=== PATIENT | male | born 1980 | race Caucasian/White ===

== ENCOUNTER 2022-02-20 21:26 | Inpatient (IN) | payer OTHER ==
[2022-02-20 21:32] VITALS: BMI 22.4
[2022-02-21] MEDS ORDERED: chlordiazePOXIDE HCL 25 MG CAPSULE PO ONE ×2 (03:13→08:00)
[2022-02-21 04:16] LABS: BASO % 0.7 % (0-2.0); EOS % 2.4 % (0-4.5); HEMATOCRIT 40.3 % (35.4-49); HEMOGLOBIN 14.2 GM/dL (11.7-16.9); LYMPH % 39.6 % (8-40); MCH 30.9 pg (25.7-33.7); MCHC 35.1 g/dl (32.0-35.9); MEAN PLT VOLUME 7.9 fl (7.5-11.1); NEUT % 48.3 % (42.8-82.8); PLATELET COUNT 216 10^3/uL (134-434); RBC 4.58 M/mm3 (4.00-5.60); RDW 13.8 % (11.9-15.9); WHITE BLOOD COUNT 5.3 K/mm3 (4.0-10.0)
[2022-02-21] MEDS ORDERED: chlordiazePOXIDE HCL 25 MG CAPSULE ONE ×3 (04:21→10:43)
[2022-02-21 04:24] LABS: ALBUMIN 4.3 g/dl (3.4-5.0); BLOOD UREA NITROGEN 9.2 mg/dL (7-18)
[2022-02-21 04:27] LABS: CREATININE 0.8 mg/dL (0.55-1.3)
[2022-02-21 04:28] LABS: BILIRUBIN,TOTAL 0.4 mg/dL (0.2-1); TOT PROT 7.6 g/dl (6.4-8.2)
[2022-02-21] MEDS ORDERED: FOLIC ACID INJECTION - 1 MG, THIAMINE HCL 100 MG, MULTIVIT INJECTION ADULT 10 ML in SOD... IVPB ONE (06:37)
[2022-02-21 06:49] VITALS: TEMP 97.9
[2022-02-21] MEDS ORDERED: chlordiazePOXIDE HCL 25 MG CAPSULE PO PRN (07:15)
[2022-02-21] MEDS ORDERED: MULTIVITAMINS (DAILY MVI) TABLET (FP) PO SCH (10:00)
[2022-02-21] MEDS ORDERED: ENOXAPARIN NA (PORCINE) 40 MG/0.4 ML DISP.SYRIN SQ SCH (10:00)
[2022-02-21] MEDS ORDERED: chlordiazePOXIDE HCL 25 MG CAPSULE PO SCH (11:00)
[2022-02-21 11:03] VITALS: BP 115/77; PULSE 99
[2022-02-22] MEDS ORDERED: THIAMINE HCL 100 MG TABLET (FP) PO SCH (10:00)
[2022-02-23] MEDS ORDERED: chlordiazePOXIDE HCL 25 MG CAPSULE PO SCH (05:00)
[2022-02-24] MEDS ORDERED: chlordiazePOXIDE HCL 10 MG CAPSULE PO SCH (05:00)
[2022-02-25] MEDS ORDERED: chlordiazePOXIDE HCL 10 MG CAPSULE PO SCH (05:00)
== END 2022-02-21 11:27 | disposition other institution (70) | DRG 774 ==
LOC: JER 21:26 → JERBED 02-21 03:22
PROVIDERS: ADMIT Hospitalist; ATTEND Internal Medicine
PROC: HZ2ZZZZ Detoxification Services for Substance Abuse Treatment (ICD-10-PCS; principal; 2022-02-21)
DX: F10.239 Alcohol dependence with withdrawal, unspecified (principal); F41.8 Other specified anxiety disorders; R20.0 Anesthesia of skin; F14.10 Cocaine abuse, uncomplicated; F17.200 Nicotine dependence, unspecified, uncomplicated; R11.0 Nausea; R25.1 Tremor, unspecified; R45.1 Restlessness and agitation
CPT/HCPCS: 36415; 70450-TC; 71045-TC-FY; 72125-TC; 80053; 80307; 84484; 85025; 93005; 93010; 99285-25; C9803-CS; U0003; U0005

== ENCOUNTER 2022-02-21 12:30 | Inpatient (IN) | payer OTHER ==
[2022-02-21 12:59] VITALS: BMI 22.4
[2022-02-21] MEDS ORDERED: DICYCLOMINE HCL 10 MG CAPSULE PO PRN (13:42)
[2022-02-21] MEDS ORDERED: LOPERAMIDE HCL 2 MG CAPSULE PO PRN (13:42)
[2022-02-21] MEDS ORDERED: IBUPROFEN 400 MG TABLET (FP) PO PRN (13:42)
[2022-02-21] MEDS ORDERED: MAGNESIUM CITRATE 300 ML BOTTLE PO PRN (13:42)
[2022-02-21] MEDS ORDERED: METHOCARBAMOL 500 MG TABLET PO PRN (13:42)
[2022-02-21] MEDS ORDERED: ONDANSETRON *ODT* 4 MG TABLET SL PRN (13:42)
[2022-02-21] MEDS ORDERED: IBUPROFEN 600 MG TABLET (FP) PO PRN (13:42)
[2022-02-21] MEDS ORDERED: BISMUTH SUBSALICYLATE 524 MG/30 ML PO PRN (13:42)
[2022-02-21] MEDS ORDERED: ACETAMINOPHEN 325 MG TABLET (FP) PO PRN ×2 (13:42)
[2022-02-21] MEDS ORDERED: MAGNESIUM HYDROX 2400MG/30ML ORAL SUSPENSION 30 ML CUP PO PRN (13:42)
[2022-02-21] MEDS ORDERED: BENZOCAINE/MENTHOL (CHLORASEPTIC ) LOZENGE MM PRN (13:42)
[2022-02-21] MEDS ORDERED: chlordiazePOXIDE HCL 25 MG CAPSULE PO PRN (13:42)
[2022-02-21] MEDS ORDERED: MAG HYDROX/AL HYDROX/SIMETH 30 ML UNIT-DOSE CUP PO PRN (13:42)
[2022-02-21] MEDS: GABAPENTIN 400 MG CAPSULE PO SCH ×2 (15:23→22:35)
[2022-02-21] MEDS: hydrOXYzine PAMOATE 25 MG CAPSULE (FP) PO SCH ×3 (15:23→22:34)
[2022-02-21] MEDS: MELATONIN 5 MG TABLETS PO SCH (22:34)
[2022-02-21] MEDS: cloNIDine HCL 0.1 MG TABLET PO SCH (22:34)
[2022-02-21] MEDS: THIAMINE HCL 100 MG TABLET (FP) PO SCH (22:34)
[2022-02-21] MEDS: chlordiazePOXIDE HCL 25 MG CAPSULE PO SCH (22:36)
[2022-02-22] MEDS: cloNIDine HCL 0.1 MG TABLET PO SCH ×3 (08:37→22:03)
[2022-02-22] MEDS: GABAPENTIN 400 MG CAPSULE PO SCH ×3 (08:37→22:03)
[2022-02-22] MEDS: hydrOXYzine PAMOATE 25 MG CAPSULE (FP) PO SCH ×5 (08:37→22:03)
[2022-02-22] MEDS: chlordiazePOXIDE HCL 25 MG CAPSULE PO SCH ×4 (08:37→22:04)
[2022-02-22] MEDS ORDERED: PARoxetine HCL 10 MG TABLET PO SCH (10:00)
[2022-02-22] MEDS: PRENATAL VITAMINS W/ FOLIC ACID TABLET (FP) PO SCH (10:16)
[2022-02-22 12:55] LABS: HEMATOCRIT 39.4 % (35.4-49); HEMOGLOBIN 13.5 GM/dL (11.7-16.9); MCH 30.9 pg (25.7-33.7); MCHC 34.4 g/dl (32.0-35.9); MEAN PLT VOLUME 8.3 fl (7.5-11.1); PLATELET COUNT 197 10^3/uL (134-434); RBC 4.38 M/mm3 (4.00-5.60); RDW 13.5 % (11.9-15.9); WHITE BLOOD COUNT 3.8 K/mm3 (4.0-10.0)
[2022-02-22 13:27] LABS: ALBUMIN 3.6 g/dl (3.4-5.0); CALCIUM 8.9 mg/dL (8.5-10.1)
[2022-02-22 13:28] LABS: CREATININE 0.7 mg/dL (0.55-1.3)
[2022-02-22 13:31] LABS: BILIRUBIN,TOTAL 0.7 mg/dL (0.2-1); TOT PROT 6.4 g/dl (6.4-8.2)
[2022-02-22] MEDS: NICOTINE 10 MG CARTRIDGE (INHALER) IH PRN (19:14)
[2022-02-22] MEDS: MELATONIN 5 MG TABLETS PO SCH (22:01)
[2022-02-22] MEDS: busPIRone HCL 10 MG TABLET (FP) PO SCH (22:02)
[2022-02-22] MEDS: THIAMINE HCL 100 MG TABLET (FP) PO SCH (22:03)
[2022-02-23] MEDS: NICOTINE 10 MG CARTRIDGE (INHALER) IH PRN ×3 (06:25→22:18)
[2022-02-23] MEDS: hydrOXYzine PAMOATE 25 MG CAPSULE (FP) PO SCH ×5 (06:26→22:14)
[2022-02-23] MEDS: chlordiazePOXIDE HCL 25 MG CAPSULE PO SCH ×4 (06:26→22:13)
[2022-02-23] MEDS: GABAPENTIN 400 MG CAPSULE PO SCH ×3 (06:26→22:14)
[2022-02-23] MEDS: cloNIDine HCL 0.1 MG TABLET PO SCH ×3 (06:27→22:14)
[2022-02-23] MEDS: busPIRone HCL 10 MG TABLET (FP) PO SCH ×2 (10:20→22:14)
[2022-02-23] MEDS: PRENATAL VITAMINS W/ FOLIC ACID TABLET (FP) PO SCH (10:21)
[2022-02-23] MEDS: MELATONIN 5 MG TABLETS PO SCH (22:14)
[2022-02-23] MEDS: THIAMINE HCL 100 MG TABLET (FP) PO SCH (22:14)
[2022-02-24] MEDS ORDERED: chlordiazePOXIDE HCL 10 MG CAPSULE PO PRN
[2022-02-24] MEDS: chlordiazePOXIDE HCL 10 MG CAPSULE PO SCH ×4 (05:59→22:33)
[2022-02-24] MEDS: GABAPENTIN 400 MG CAPSULE PO SCH ×3 (05:59→22:32)
[2022-02-24] MEDS: hydrOXYzine PAMOATE 25 MG CAPSULE (FP) PO SCH ×5 (05:59→22:31)
[2022-02-24] MEDS: cloNIDine HCL 0.1 MG TABLET PO SCH ×3 (05:59→22:31)
[2022-02-24] MEDS: NICOTINE 10 MG CARTRIDGE (INHALER) IH PRN ×3 (06:00→17:52)
[2022-02-24] MEDS: PRENATAL VITAMINS W/ FOLIC ACID TABLET (FP) PO SCH (10:34)
[2022-02-24] MEDS: busPIRone HCL 10 MG TABLET (FP) PO SCH ×2 (10:34→22:31)
[2022-02-24] MEDS: MELATONIN 5 MG TABLETS PO SCH (22:32)
[2022-02-24] MEDS: THIAMINE HCL 100 MG TABLET (FP) PO SCH (22:32)
[2022-02-25] MEDS: chlordiazePOXIDE HCL 10 MG CAPSULE PO SCH ×2 (05:27→17:54)
[2022-02-25] MEDS: hydrOXYzine PAMOATE 25 MG CAPSULE (FP) PO SCH ×5 (05:27→22:04)
[2022-02-25] MEDS: GABAPENTIN 400 MG CAPSULE PO SCH ×3 (05:27→22:05)
[2022-02-25] MEDS: cloNIDine HCL 0.1 MG TABLET PO SCH ×3 (05:27→22:04)
[2022-02-25] MEDS: NICOTINE 10 MG CARTRIDGE (INHALER) IH PRN ×3 (05:29→18:02)
[2022-02-25] MEDS: busPIRone HCL 10 MG TABLET (FP) PO SCH ×2 (10:27→22:04)
[2022-02-25] MEDS: PRENATAL VITAMINS W/ FOLIC ACID TABLET (FP) PO SCH (10:27)
[2022-02-25] MEDS: THIAMINE HCL 100 MG TABLET (FP) PO SCH (22:04)
[2022-02-25] MEDS: MELATONIN 5 MG TABLETS PO SCH (22:05)
[2022-02-26] MEDS ORDERED: chlordiazePOXIDE HCL 10 MG CAPSULE PO ONE (05:00)
[2022-02-26] MEDS: hydrOXYzine PAMOATE 25 MG CAPSULE (FP) PO SCH (05:43)
[2022-02-26] MEDS: GABAPENTIN 400 MG CAPSULE PO SCH (05:44)
[2022-02-26] MEDS: cloNIDine HCL 0.1 MG TABLET PO SCH (05:44)
[2022-02-26] MEDS: NICOTINE 10 MG CARTRIDGE (INHALER) IH PRN (05:58)
[2022-02-26 08:52] VITALS: BP 101/65; PULSE 74; TEMP 97.7
== END 2022-02-26 10:10 | disposition home or self-care (01) | DRG 774 ==
LOC: YASAS 12:30 → Y3N 14:08
PROVIDERS: ADMIT Allergy & Immunology; ATTEND Surgery
PROC: HZ2ZZZZ Detoxification Services for Substance Abuse Treatment (ICD-10-PCS; principal; 2022-02-21)
DX: F10.230 Alcohol dependence with withdrawal, uncomplicated (principal); F14.20 Cocaine dependence, uncomplicated; F17.210 Nicotine dependence, cigarettes, uncomplicated; F19.24 Other psychoactive substance dependence with psychoactive substance-induced mood disorder; F41.0 Panic disorder [episodic paroxysmal anxiety]; F41.9 Anxiety disorder, unspecified; F90.9 Attention-deficit hyperactivity disorder, unspecified type; I10 Essential (primary) hypertension; M54.31 Sciatica, right side; Z28.310 Unvaccinated for COVID-19; Z56.0 Unemployment, unspecified; Z59.00 Homelessness unspecified
CPT/HCPCS: 36415; 80053; 85027; 86780; 87811; 93005; 93010; C9803-CS; J0735; U0003; U0005

== ENCOUNTER 2023-02-03 16:44 | Inpatient (IN) | payer OTHER ==
[2023-02-03 18:38] VITALS: BMI 21.2
[2023-02-03] MEDS ORDERED: NICOTINE 10 MG CARTRIDGE (INHALER) IH PRN (21:28)
[2023-02-03] MEDS ORDERED: MAGNESIUM HYDROX 2400MG/30ML ORAL SUSPENSION 30 ML CUP PO PRN (21:28)
[2023-02-03] MEDS ORDERED: BENZONATATE 200 MG CAPSULE PO PRN (21:28)
[2023-02-03] MEDS ORDERED: LOPERAMIDE HCL 2 MG CAPSULE PO PRN (21:28)
[2023-02-03] MEDS ORDERED: guaiFENesin 600 MG TABLET.ER (FP) PO PRN (21:28)
[2023-02-03] MEDS ORDERED: ACETAMINOPHEN 325 MG TABLET (FP) PO PRN (21:28)
[2023-02-03] MEDS ORDERED: MAG HYDROX/AL HYDROX/SIMETH 30 ML UNIT-DOSE CUP PO PRN (21:28)
[2023-02-03] MEDS ORDERED: ONDANSETRON *ODT* 4 MG TABLET SL PRN (21:28)
[2023-02-03] MEDS ORDERED: BISMUTH SUBSALICYLATE 524 MG/30 ML PO PRN (21:28)
[2023-02-03] MEDS ORDERED: BENZOCAINE/MENTHOL (CHLORASEPTIC ) LOZENGE MM PRN (21:28)
[2023-02-03] MEDS ORDERED: POLYETHYLENE GLYCOL (HEALTHYLAX) 3350 17 GM PACKET PO PRN (21:28)
[2023-02-03] MEDS ORDERED: NALOXONE HCL (KLOXXADO) 8 MG SPRAY NS PRN (21:28)
[2023-02-03] MEDS ORDERED: NALOXONE HCL 0.4 MG/ML VIAL IM PRN (21:28)
[2023-02-03] MEDS ORDERED: IBUPROFEN 400 MG TABLET (FP) PO PRN (21:28)
[2023-02-03] MEDS ORDERED: DICYCLOMINE HCL 10 MG CAPSULE PO PRN (21:28)
[2023-02-03] MEDS ORDERED: diazePAM 5 MG TABLET ONE (21:39)
[2023-02-03] MEDS: diazePAM 5 MG TABLET PO PRN (21:50)
[2023-02-03] MEDS: METHOCARBAMOL 500 MG TABLET PO PRN (22:51)
[2023-02-03] MEDS: MELATONIN 5 MG TABLETS PO SCH (22:51)
[2023-02-03] MEDS: THIAMINE HCL 100 MG TABLET (FP) PO SCH (22:51)
[2023-02-03] MEDS: diazePAM 5 MG TABLET PO SCH ×2 (22:52→23:54)
[2023-02-04] MEDS: diazePAM 5 MG TABLET PO SCH ×4 (05:41→22:36)
[2023-02-04] MEDS: NICOTINE 14 MG/24 HOURS TOPICAL PATCH TD SCH (10:29)
[2023-02-04] MEDS: PRENATAL VITAMINS W/ FOLIC ACID TABLET (FP) PO SCH (10:29)
[2023-02-04 11:39] LABS: HEMATOCRIT 41.5 % (35.4-49); HEMOGLOBIN 14.5 GM/dL (11.7-16.9); MCH 31.6 pg (25.7-33.7); MCHC 34.9 g/dl (32.0-35.9); MEAN CELL VOLUME 90.3 fl (80-96); MEAN PLT VOLUME 8.5 fl (7.5-11.1); PLATELET COUNT 222 10^3/uL (134-434); RBC 4.59 M/mm3 (4.00-5.60); RDW 13.3 % (11.9-15.9); WHITE BLOOD COUNT 4.5 K/mm3 (4.0-10.0)
[2023-02-04 11:47] LABS: POTASSIUM 3.8 mmol/L (3.5-5.1)
[2023-02-04 12:10] LABS: CALCIUM 9.2 mg/dL (8.5-10.1)
[2023-02-04 12:11] LABS: ALBUMIN 3.8 g/dl (3.4-5.0); BLOOD UREA NITROGEN 7.3 mg/dL (7-18)
[2023-02-04 12:13] LABS: BILIRUBIN,TOTAL 0.8 mg/dL (0.2-1); TOT PROT 7.6 g/dl (6.4-8.2)
[2023-02-04 12:14] LABS: CREATININE 0.9 mg/dL (0.55-1.3)
[2023-02-04] MEDS: busPIRone HCL 5 MG TABLET PO SCH ×2 (14:51→22:37)
[2023-02-04] MEDS: METHOCARBAMOL 500 MG TABLET PO PRN (22:37)
[2023-02-04] MEDS: MELATONIN 5 MG TABLETS PO SCH (22:37)
[2023-02-04] MEDS: THIAMINE HCL 100 MG TABLET (FP) PO SCH (22:37)
[2023-02-05] MEDS: busPIRone HCL 5 MG TABLET PO SCH ×3 (05:59→22:35)
[2023-02-05] MEDS: diazePAM 5 MG TABLET PO SCH ×3 (05:59→22:36)
[2023-02-05] MEDS: PRENATAL VITAMINS W/ FOLIC ACID TABLET (FP) PO SCH (10:20)
[2023-02-05] MEDS: diazePAM 5 MG TABLET PO PRN ×2 (10:21→17:39)
[2023-02-05] MEDS: PARoxetine HCL 10 MG TABLET PO SCH (10:21)
[2023-02-05] MEDS: NICOTINE 14 MG/24 HOURS TOPICAL PATCH TD SCH (10:43)
[2023-02-05] MEDS: THIAMINE HCL 100 MG TABLET (FP) PO SCH (22:35)
[2023-02-05] MEDS: MELATONIN 5 MG TABLETS PO SCH (22:35)
[2023-02-05] MEDS: IBUPROFEN 600 MG TABLET (FP) PO PRN (22:37)
[2023-02-06] MEDS: diazePAM 5 MG TABLET PO SCH ×2 (05:50→17:48)
[2023-02-06] MEDS: busPIRone HCL 5 MG TABLET PO SCH ×3 (05:50→21:58)
[2023-02-06] MEDS: IBUPROFEN 600 MG TABLET (FP) PO PRN ×3 (06:12→17:49)
[2023-02-06] MEDS: NICOTINE 14 MG/24 HOURS TOPICAL PATCH TD SCH (10:29)
[2023-02-06] MEDS: PRENATAL VITAMINS W/ FOLIC ACID TABLET (FP) PO SCH (10:32)
[2023-02-06] MEDS: diazePAM 5 MG TABLET PO PRN (10:32)
[2023-02-06] MEDS: PARoxetine HCL 10 MG TABLET PO SCH (10:32)
[2023-02-06] MEDS: BENZOCAINE 20 % GEL TUBE MM PRN ×2 (10:33→21:59)
[2023-02-06] MEDS: METHOCARBAMOL 500 MG TABLET PO PRN ×2 (15:42→21:58)
[2023-02-06] MEDS ORDERED: AMOX TR/POT CLAV 875MG/125MG TABLETS (FP) PO ONE (19:13)
[2023-02-06] MEDS: THIAMINE HCL 100 MG TABLET (FP) PO SCH (21:59)
[2023-02-06] MEDS: MELATONIN 5 MG TABLETS PO SCH (22:01)
[2023-02-07] MEDS: IBUPROFEN 600 MG TABLET (FP) PO PRN ×2 (00:26→08:50)
[2023-02-07] MEDS: busPIRone HCL 5 MG TABLET PO SCH (05:50)
[2023-02-07] MEDS ORDERED: diazePAM 5 MG TABLET PO ONE (06:00)
[2023-02-07] MEDS ORDERED: AMOX TR/POT CLAV 875MG/125MG TABLETS (FP) PO SCH (08:00)
[2023-02-07 09:31] VITALS: BP 147/98; PULSE 74; RESP 17; TEMP 97.5
[2023-02-07] MEDS: PRENATAL VITAMINS W/ FOLIC ACID TABLET (FP) PO SCH (10:32)
[2023-02-07] MEDS: NICOTINE 14 MG/24 HOURS TOPICAL PATCH TD SCH (10:32)
[2023-02-07] MEDS: PARoxetine HCL 10 MG TABLET PO SCH (10:32)
== END 2023-02-07 11:40 | disposition home or self-care (01) | DRG 775 ==
LOC: YASAS 16:44 → Y3N 21:26
PROVIDERS: ADMIT Allergy & Immunology; ATTEND Surgery
PROC: HZ2ZZZZ Detoxification Services for Substance Abuse Treatment (ICD-10-PCS; principal; 2023-02-03)
DX: F10.230 Alcohol dependence with withdrawal, uncomplicated (principal); F17.210 Nicotine dependence, cigarettes, uncomplicated; F19.24 Other psychoactive substance dependence with psychoactive substance-induced mood disorder; F41.9 Anxiety disorder, unspecified; F32.A Depression, unspecified; F41.0 Panic disorder [episodic paroxysmal anxiety]; I10 Essential (primary) hypertension; Z28.310 Unvaccinated for COVID-19; Z28.9 Immunization not carried out for unspecified reason
CPT/HCPCS: 36415; 80053; 85027; 86780; C9803-CS; U0003; U0005

== ENCOUNTER 2023-04-11 18:13 | Inpatient (IN) | payer OTHER ==
[2023-04-11 20:38] VITALS: BMI 21.7
[2023-04-11] MEDS ORDERED: MAGNESIUM HYDROX 2400MG/30ML ORAL SUSPENSION 30 ML CUP PO PRN (22:25)
[2023-04-11] MEDS ORDERED: P-EPHED 60MG/TRIPROLIDI 2.5MG TABLET PO PRN (22:25)
[2023-04-11] MEDS ORDERED: DICYCLOMINE HCL 10 MG CAPSULE PO PRN (22:25)
[2023-04-11] MEDS ORDERED: guaiFENesin 600 MG TABLET.ER (FP) PO PRN (22:25)
[2023-04-11] MEDS ORDERED: ACETAMINOPHEN 325 MG TABLET (FP) PO PRN (22:25)
[2023-04-11] MEDS ORDERED: NICOTINE POLACRILEX 2 MG GUM BUC PRN (22:25)
[2023-04-11] MEDS ORDERED: BENZOCAINE/MENTHOL (CHLORASEPTIC ) LOZENGE MM PRN (22:25)
[2023-04-11] MEDS ORDERED: IBUPROFEN 600 MG TABLET (FP) PO PRN (22:25)
[2023-04-11] MEDS ORDERED: BISMUTH SUBSALICYLATE 524 MG/30 ML PO PRN (22:25)
[2023-04-11] MEDS ORDERED: POLYETHYLENE GLYCOL (HEALTHYLAX) 3350 17 GM PACKET PO PRN (22:25)
[2023-04-11] MEDS ORDERED: IBUPROFEN 400 MG TABLET (FP) PO PRN (22:25)
[2023-04-11] MEDS ORDERED: ONDANSETRON *ODT* 4 MG TABLET SL PRN (22:25)
[2023-04-11] MEDS ORDERED: MAG HYDROX/AL HYDROX/SIMETH 30 ML UNIT-DOSE CUP PO PRN (22:25)
[2023-04-11] MEDS ORDERED: LOPERAMIDE HCL 2 MG CAPSULE PO PRN (22:25)
[2023-04-11] MEDS ORDERED: BENZONATATE 200 MG CAPSULE PO PRN (22:25)
[2023-04-11] MEDS ORDERED: chlordiazePOXIDE HCL 25 MG CAPSULE PO PRN (22:28)
[2023-04-11] MEDS: chlordiazePOXIDE HCL 25 MG CAPSULE PO SCH (23:52)
[2023-04-12] MEDS: chlordiazePOXIDE HCL 25 MG CAPSULE PO SCH ×4 (05:31→22:17)
[2023-04-12 10:12] LABS: POTASSIUM 4.6 mmol/L (3.5-5.1)
[2023-04-12 10:19] LABS: HEMATOCRIT 39.3 % (35.4-49); HEMOGLOBIN 13.6 GM/dL (11.7-16.9); MCH 31.7 pg (25.7-33.7); MCHC 34.6 g/dl (32.0-35.9); MEAN CELL VOLUME 91.6 fl (80-96); PLATELET COUNT 241 10^3/uL (134-434); RBC 4.29 M/mm3 (4.00-5.60); RDW 13.8 % (11.9-15.9); WHITE BLOOD COUNT 4.7 K/mm3 (4.0-10.0)
[2023-04-12 10:26] LABS: BLOOD UREA NITROGEN 11.3 mg/dL (7-18)
[2023-04-12 10:28] LABS: BILIRUBIN,TOTAL 0.5 mg/dL (0.2-1); TOT PROT 6.9 g/dl (6.4-8.2)
[2023-04-12 10:29] LABS: ALBUMIN 3.3 g/dl (3.4-5.0); CALCIUM 8.9 mg/dL (8.5-10.1); CREATININE 0.9 mg/dL (0.55-1.3)
[2023-04-12] MEDS: PRENATAL VITAMINS W/ FOLIC ACID TABLET (FP) PO SCH (10:30)
[2023-04-12 12:01] LABS: HIV INTERPRETATION NEGATIVE (NEGATIVE)
[2023-04-12] MEDS: hydrOXYzine PAMOATE 25 MG CAPSULE (FP) PO PRN ×2 (22:16)
[2023-04-12] MEDS: THIAMINE HCL 100 MG TABLET (FP) PO SCH (22:16)
[2023-04-12] MEDS: MELATONIN 5 MG TABLETS PO SCH (22:16)
[2023-04-12] MEDS: METHOCARBAMOL 500 MG TABLET PO PRN (22:16)
[2023-04-13] MEDS: chlordiazePOXIDE HCL 25 MG CAPSULE PO SCH ×4 (05:43→22:23)
[2023-04-13] MEDS: PRENATAL VITAMINS W/ FOLIC ACID TABLET (FP) PO SCH (10:15)
[2023-04-13] MEDS: hydrOXYzine PAMOATE 25 MG CAPSULE (FP) PO PRN (22:24)
[2023-04-13] MEDS: METHOCARBAMOL 500 MG TABLET PO PRN (22:24)
[2023-04-13] MEDS: THIAMINE HCL 100 MG TABLET (FP) PO SCH (22:24)
[2023-04-13] MEDS: MELATONIN 5 MG TABLETS PO SCH ×2 (22:36→22:42)
[2023-04-14] MEDS ORDERED: chlordiazePOXIDE HCL 10 MG CAPSULE PO PRN
[2023-04-14] MEDS: chlordiazePOXIDE HCL 10 MG CAPSULE PO SCH ×4 (05:37→22:12)
[2023-04-14] MEDS: hydrOXYzine PAMOATE 25 MG CAPSULE (FP) PO PRN ×2 (05:38→22:10)
[2023-04-14] MEDS: METHOCARBAMOL 500 MG TABLET PO PRN (05:40)
[2023-04-14] MEDS: PRENATAL VITAMINS W/ FOLIC ACID TABLET (FP) PO SCH (10:11)
[2023-04-14] MEDS: MELATONIN 5 MG TABLETS PO SCH (22:10)
[2023-04-14] MEDS: THIAMINE HCL 100 MG TABLET (FP) PO SCH (22:10)
[2023-04-15] MEDS: chlordiazePOXIDE HCL 10 MG CAPSULE PO SCH ×2 (05:38→17:18)
[2023-04-15] MEDS: PRENATAL VITAMINS W/ FOLIC ACID TABLET (FP) PO SCH (09:44)
[2023-04-15] MEDS: hydrOXYzine PAMOATE 25 MG CAPSULE (FP) PO PRN ×2 (10:09→22:30)
[2023-04-15] MEDS: busPIRone HCL 10 MG TABLET (FP) PO SCH ×2 (10:33→22:09)
[2023-04-15] MEDS: PARoxetine HCL 10 MG TABLET PO SCH (10:33)
[2023-04-15] MEDS: THIAMINE HCL 100 MG TABLET (FP) PO SCH (22:09)
[2023-04-15] MEDS: MELATONIN 5 MG TABLETS PO SCH (22:09)
[2023-04-15] MEDS: METHOCARBAMOL 500 MG TABLET PO PRN (22:09)
[2023-04-16] MEDS ORDERED: chlordiazePOXIDE HCL 10 MG CAPSULE PO ONE (05:00)
[2023-04-16 09:32] VITALS: BP 109/67; PULSE 74; RESP 17; TEMP 98.4
[2023-04-16] MEDS: PARoxetine HCL 10 MG TABLET PO SCH (09:38)
[2023-04-16] MEDS: PRENATAL VITAMINS W/ FOLIC ACID TABLET (FP) PO SCH (09:38)
[2023-04-16] MEDS: busPIRone HCL 10 MG TABLET (FP) PO SCH (09:38)
== END 2023-04-16 09:57 | disposition other institution (70) | DRG 774 ==
LOC: YASAS 18:13 → Y3N 23:30
PROVIDERS: ADMIT Allergy & Immunology; ATTEND Surgery
PROC: HZ2ZZZZ Detoxification Services for Substance Abuse Treatment (ICD-10-PCS; principal; 2023-04-11)
DX: F10.230 Alcohol dependence with withdrawal, uncomplicated (principal); F14.20 Cocaine dependence, uncomplicated; F17.210 Nicotine dependence, cigarettes, uncomplicated; F32.9 Major depressive disorder, single episode, unspecified; F41.9 Anxiety disorder, unspecified; I10 Essential (primary) hypertension; R63.4 Abnormal weight loss; Z68.21 Body mass index [BMI] 21.0-21.9, adult; Z62.810 Personal history of physical and sexual abuse in childhood; Z28.310 Unvaccinated for COVID-19; Z28.9 Immunization not carried out for unspecified reason; Z56.0 Unemployment, unspecified; Z59.00 Homelessness unspecified
CPT/HCPCS: 36415; 80053; 85027; 86780; 87389; 87635; 87811

== ENCOUNTER 2025-03-21 00:42 | Inpatient (IN) | payer OTHER ==
[2025-03-21] MEDS ORDERED: BISMUTH SUBSALICYLATE 524 MG/30 ML PO PRN (01:39)
[2025-03-21] MEDS ORDERED: IBUPROFEN 600 MG TABLET (FP) PO PRN (01:39)
[2025-03-21] MEDS ORDERED: BENZOCAINE/MENTHOL (CHLORASEPTIC ) LOZENGE MM PRN (01:39)
[2025-03-21] MEDS ORDERED: POLYETHYLENE GLYCOL (HEALTHYLAX) 3350 17 GM PACKET PO PRN (01:39)
[2025-03-21] MEDS ORDERED: METHOCARBAMOL 500 MG TABLET PO PRN (01:39)
[2025-03-21] MEDS ORDERED: LOPERAMIDE HCL 2 MG CAPSULE PO PRN (01:39)
[2025-03-21] MEDS ORDERED: hydrOXYzine PAMOATE 25 MG CAPSULE (FP) PO PRN (01:39)
[2025-03-21] MEDS ORDERED: DICYCLOMINE HCL 10 MG CAPSULE PO PRN (01:39)
[2025-03-21] MEDS ORDERED: NALOXONE (NARCAN) HCL 4 MG/0.1 ML SPRAY NS PRN (01:39)
[2025-03-21] MEDS ORDERED: IBUPROFEN 400 MG TABLET (FP) PO PRN (01:39)
[2025-03-21] MEDS ORDERED: guaiFENesin 600 MG TABLET.ER (FP) PO PRN (01:39)
[2025-03-21] MEDS ORDERED: MAGNESIUM HYDROX 2400MG/30ML ORAL SUSPENSION 30 ML CUP PO PRN (01:39)
[2025-03-21] MEDS ORDERED: MAG HYDROX/AL HYDROX/SIMETH 30 ML UNIT-DOSE CUP PO PRN (01:39)
[2025-03-21] MEDS ORDERED: ACETAMINOPHEN 325 MG TABLET (FP) PO PRN (01:39)
[2025-03-21] MEDS ORDERED: ONDANSETRON *ODT* 4 MG TABLET SL PRN (01:39)
[2025-03-21] MEDS ORDERED: BENZONATATE 200 MG CAPSULE PO PRN (01:39)
[2025-03-21 03:23] VITALS: BMI 21.4
[2025-03-21] MEDS: NICOTINE 14 MG/24 HOURS TOPICAL PATCH TD SCH (09:32)
[2025-03-21] MEDS: PRENATAL VITAMINS W/ FOLIC ACID TABLET (FP) PO SCH (09:32)
[2025-03-21] MEDS: levETIRAcetam 500 MG TABLET (FP) PO SCH (09:32)
[2025-03-21 11:26] LABS: MCHC 32.6 g/dl (32.3-36.5); MEAN CELL VOLUME 94.4 fl (79.0-92.2); MEAN PLT VOLUME 10.3 fl (9.4-12.4); RDW 13.3 % (12.1-15.9)
[2025-03-21] MEDS ORDERED: busPIRone HCL 10 MG TABLET (FP) PO SCH (11:45)
[2025-03-21] MEDS: GABAPENTIN 400 MG CAPSULE PO SCH (12:04)
[2025-03-21] MEDS: DEXTROAMPHETAMINE/AMPHETAMINE 20 MG CAP.ER.24H PO SCH (12:04)
[2025-03-21] MEDS: clonazePAM 0.5 MG ODT TABLETS SL SCH (13:47)
[2025-03-21] MEDS: NICOTINE POLACRILEX 2 MG GUM BUC PRN (17:09)
[2025-03-21 17:13] LABS: GLUCOSE,RANDOM 88.0 mg/dL (74-106)
[2025-03-21 17:14] LABS: CO2 27.0 mmol/L (21-32)
[2025-03-21 17:15] LABS: SGPT/ALT 26.0 U/L (13-61)
[2025-03-21 17:16] LABS: CREATININE 0.8 mg/dL (0.55-1.3); SGOT/AST 24.0 U/L (15-37)
[2025-03-21 17:17] LABS: TOT PROT 6.6 g/dl (6.4-8.2)
[2025-03-21 17:18] LABS: ALK PHOS 60.0 U/L (45-117)
[2025-03-21] MEDS: MELATONIN 5 MG TABLETS PO SCH (22:02)
[2025-03-21] MEDS: THIAMINE 100 MG TABLET PO SCH (22:02)
[2025-03-23 06:04] VITALS: RESP 16
[2025-03-23 09:28] VITALS: BP 122/76; PULSE 88; TEMP 98
== END 2025-03-23 09:45 | disposition home or self-care (01) | DRG 775 ==
LOC: YASAS 00:42 → Y6N 03:17
PROVIDERS: ADMIT Allergy & Immunology; ATTEND Allergy & Immunology
PROC: HZ2ZZZZ Detoxification Services for Substance Abuse Treatment (ICD-10-PCS; principal; 2025-03-21)
DX: F10.20 Alcohol dependence, uncomplicated (principal); F13.20 Sedative, hypnotic or anxiolytic dependence, uncomplicated; F17.210 Nicotine dependence, cigarettes, uncomplicated; F10.282 Alcohol dependence with alcohol-induced sleep disorder; F10.280 Alcohol dependence with alcohol-induced anxiety disorder; F33.1 Major depressive disorder, recurrent, moderate; F41.9 Anxiety disorder, unspecified; I10 Essential (primary) hypertension; Z86.59 Personal history of other mental and behavioral disorders; Z56.0 Unemployment, unspecified; Z59.00 Homelessness unspecified
CPT/HCPCS: 36415; 80053; 80305; 80307; 85027; 86780; 93005; 93010